=== PATIENT | female | born 1950 | race Caucasian/White ===

== ENCOUNTER 2019-03-16 10:06 | Outpatient (CLI) | payer MEDICARE ==
--- NOTE | 2019-03-16 13:34 | Mammography Report ---
Reason: SCREENING MAMMO Procedure Date: 03/16/2019 Accession Number: [id number] / [id number] Procedure: MGN - Screening Mammo Dig Bilat CPT Code: FULL RESULT: EXAM: Screening Mammo Dig Bilat DATE: 03/16/2019 10:33 AM CLINICAL HISTORY: Screening examination. No baseline mammogram, prior mammograms at greater than 10 years ago at an outside institution. History of benign right breast biopsy in 2006. TECHNIQUE: (B) - Bilateral CC and MLO views were obtained. COMPARISON: None PARENCHYMAL PATTERN: (A) - The breast(s) demonstrate(s) scattered fibroglandular densities. FINDINGS: There is a gently lobulated well-circumscribed mass in the upper inner right breast with a adjacent biopsy markers, 1.1 cm from the mass. In absence of documentation that the biopsy marker corresponds to a biopsy sample taken from this nodule, additional workup is needed. There are no suspicious masses, calcifications, or areas of distortion in the left breast. IMPRESSION: Incomplete examination. BI-RADS category 0. RECOMMENDATION: (ADDMU) - Additional views using both Mammography and Ultrasound recommended. If outside imaging demonstrating that this right breast mass was biopsied can be obtained, then no further imaging workup is necessary and the patient could return to annual screening. BI-RADS CATEGORY: (0) - Incomplete Examination - need additional evaluation. STANDARD QUALIFYING STATEMENTS: 1. This examination was not reviewed with the aid of Computer-Aided Detection (CAD). 2. A negative or benign imaging report should not preclude biopsy if clinically suspicious findings are present. 3. Dense breasts may obscure an underlying neoplasm. 4. This examination was reviewed without the aid of 3D breast imaging (tomosynthesis).
== END 2019-03-16 10:07 | disposition home or self-care (01) ==
LOC: DI.N 10:06
PROVIDERS: ATTEND Family Medicine
DX: Z12.31 Encounter for screening mammogram for malignant neoplasm of breast (principal); R92.8 Other abnormal and inconclusive findings on diagnostic imaging of breast
CPT/HCPCS: 77067

== ENCOUNTER 2019-03-25 12:30 | Outpatient (CLI) | payer MEDICARE ==
--- NOTE | 2019-03-25 14:27 | Ultrasound Report ---
Reason: ABNORMAL MAMMO RT BREAST Procedure Date: 03/25/2019 Accession Number: [id number] / [id number] Procedure: US - Breast Unilateral Limited CPT Code: FULL RESULT: EXAM: Diag Special Views Dig RT, Breast Unilateral Limited DATE: 03/25/2019 1:19 PM CLINICAL HISTORY: Follow-up abnormal mammogram COMPARISON: 03/16/2019. Mammograms previous to this were performed in [place] and are unavailable for comparison. RIGHT ADDITIONAL VIEWS TECHNIQUE: (R) - Right CC and MLO views were obtained with additional spot compression and true lateral imaging. 3-D imaging was also performed. PARENCHYMAL PATTERN: (A) - The breasts demonstrate scattered fibroglandular densities bilaterally. FINDINGS: The described right upper outer quadrant density seen on 03/16/2019 partially persists on additional views. A biopsy clip is again noted. RIGHT BREAST ULTRASOUND TECHNIQUE: Targeted ultrasound was performed of the right breast right upper outer quadrant. Color Doppler was employed as appropriate. FINDINGS: The previously placed biopsy clip is identified by ultrasound. No cystic or solid mass, abnormal fluid collection, dilated duct, or other abnormality is seen to account for the mammographic finding. IMPRESSION: Probably Benign Right Breast. BI-RADS category 3. RECOMMENDATION: (6MOS) - Recommend 6 month follow-up exam. If prior mammograms become available for comparison, short-term follow-up may not be needed. BI-RADS CATEGORY: (3) - Probably Benign. Discussed with the patient. STANDARD QUALIFYING STATEMENTS: 1. This examination was not reviewed with the aid of Computer-Aided Detection (CAD). 2. A negative or benign imaging report should not preclude biopsy if clinically suspicious findings are present. 3. Dense breasts may obscure an underlying neoplasm. 4. This examination was reviewed with the aid of 3D breast imaging (tomosynthesis).
== END 2019-03-25 12:31 | disposition home or self-care (01) ==
LOC: DI 12:30
PROVIDERS: ATTEND Family Medicine
DX: R92.8 Other abnormal and inconclusive findings on diagnostic imaging of breast (principal)
CPT/HCPCS: 76642

== ENCOUNTER 2020-08-23 10:08 | Outpatient (CLI) | payer MEDICARE ==
--- NOTE | 2020-08-23 11:38 | MRI Report ---
PROCEDURE: Lumbar Spine W/O INDICATIONS: RT LUMBAR RADICULOPATHY TECHNIQUE: Noncontrast sagittal T1 spin echo and T2 fast echo, sagittal STIR, axial T1 and T2 fast spin echo thr ough the lumbar spine. In cases with scoliosis, additional coronal T2 fast spin echo may be performe d. COMPARISON: Plain films of the lumbar spine dated . FINDINGS: Image quality: Excellent. Alignment and Curvature: 5 lumbar type vertebral bodies are present by plain film. There is loss of n ormal lumbar lordosis. There is mild grade 1 retrolisthesis of L2 on L3, L3 on L4, L4 on L5, and L5 o n S1. Bone Marrow: Marrow is of normal overall signal. No acute vertebral body compression fractures. Th e previously described L5 compression fracture is mild. There is severe reactive signal within the en d plates adjacent to the L5-S1 intervertebral disc. Moderate reactive signal within the end plates ad jacent to the L3-L4 and L4-L5 intervertebral discs. Mild reactive signal within the end plates adjace nt to the T12-L1, L1-L2, L2-L3 intervertebral discs. Spinal Cord: Conus medullaris terminates at the mid L1 level. Visualized cord demonstrates normal s ignal and size. Paraspinous Soft Tissues: No paravertebral masses. T12-L1: Moderate disc desiccation. Mild disc height loss. Mild diffuse disc bulge. Mild canal stenos is. Mild bilateral foraminal stenosis. L1-L2: Moderate disc desiccation. Mild disc height loss. Mild diffuse disc bulge with superimposed right far lateral protrusion. Mild facet and ligament flavum hypertrophy. Mild canal stenosis. Mild left foraminal stenosis. Severe right foraminal stenosis with right L1 nerve root compression. L2-L3: Moderate disc height loss and desiccation. Moderate diffuse disc bulge. Mild facet and liga ment flavum hypertrophy. Mild epidural lipomatosis. Moderate canal stenosis. Mild bilateral foraminal stenosis. L3-L4: Moderate disc height loss and desiccation. Moderate diffuse disc bulge/osteophyte. Mild face t and ligament flavum hypertrophy. Mild epidural lipomatosis. Severe canal stenosis. Moderate subarti cular foraminal stenosis bilaterally. L4-L5: Severe disc height loss and desiccation. Mild diffuse disc bulge/osteophyte. Mild facet and ligament flavum hypertrophy. Mild canal stenosis. Moderate subarticular foraminal stenosis bilaterall y. L5-S1: Severe disc height loss and desiccation. Mild diffuse disc bulge/osteophyte with superimpose d right paracentral disc extrusion which extends inferiorly within the right anterior epidural space. Mild facet and ligament flavum hypertrophy. Mild canal stenosis. Severe bilateral foraminal stenosis with bilateral L5 nerve root compression. IMPRESSION: 1. Previously described L5 compression fracture is chronic. 2. Multilevel degenerative disc and facet disease, in addition to epidural lipomatosis and ligamentum flavum hypertrophy. 3. Multilevel canal stenoses, worst at L3-L4, where there is severe canal stenosis. 4. Multilevel foraminal stenoses, worst at L1-L2 and L5-S1 where there is associated intraforaminal n erve root compression. Recommend correlation with clinical symptoms to ascertain relevance of these f indings. Reviewed by: Jesenia Moore MD on 08/23/2020 11:36 AM PDT Approved by: Jesenia Moore MD on 08/23/2020 11:36 AM PDT Station ID: [id number]
== END 2020-08-23 10:09 | disposition home or self-care (01) ==
LOC: DI 10:08
PROVIDERS: ATTEND Family Medicine
DX: M47.816 Spondylosis without myelopathy or radiculopathy, lumbar region (principal); M47.817 Spondylosis without myelopathy or radiculopathy, lumbosacral region; M48.05 Spinal stenosis, thoracolumbar region; M51.26 Other intervertebral disc displacement, lumbar region; M48.061 Spinal stenosis, lumbar region without neurogenic claudication; E88.2 Lipomatosis, not elsewhere classified; M51.27 Other intervertebral disc displacement, lumbosacral region; M48.07 Spinal stenosis, lumbosacral region
CPT/HCPCS: 72148